=== PATIENT | female | born 1955 | race Caucasian/White ===

== ENCOUNTER 2024-07-11 11:49 | Emergency (ER) | payer MEDICARE, OTHER ==
[2024-07-11] MEDS: Acetaminophen/HYDROcodone 325-5 MG Tab PO ONE (13:57)
[2024-07-11] MEDS: Cephalexin 500 MG Cap PO ONE (14:41)
[2024-07-11] MEDS: Bacitracin Oint 1 GM U/D Packet TOP ONE (14:41)
== END 2024-07-11 15:37 | disposition home or self-care (01) ==
LOC: MW.ED 11:49
DX: S51.811A Laceration without foreign body of right forearm, initial encounter (principal); S00.83XA Contusion of other part of head, initial encounter; S09.90XA Unspecified injury of head, initial encounter; S80.211A Abrasion, right knee, initial encounter; Z90.710 Acquired absence of both cervix and uterus; W11.XXXA Fall on and from ladder, initial encounter
CPT/HCPCS: 70450; 70486; 71101; 73090; 99284; A9270; 99283